=== PATIENT | female | born 1975 | race Caucasian/White ===

== ENCOUNTER → 2018-12-05 | Outpatient (CLI) | payer BC ==
[~2018-12-05] VITALS: Ht 165.1 cm; Wt 68.0 kg
[~2018-12-05] MED LIST: SINCALIDE 1.36 MCG in IV NORMAL SALINE 50ML 30 ML IV ONE
--- NOTE | 2018-12-05 12:17 | RAD ---
Hepatobiliary scan with gallbladder ejection fraction calculation 12/05/2018 Clinical History: Right upper quadrant abdominal pain with nausea and vomiting for 6 weeks. Technique: After the intravenous administration of 5.5 mCi of technetium 99m Choletec, imaging of the right upper quadrant of the abdomen was performed using the gamma camera for 60 minutes. 2 mcg of CCK was infused intravenously and continued imaging of the right upper quadrant of the abdomen was performed for 30 minutes. A gallbladder ejection fraction was calculated. Findings: Normal perfusion, uptake and excretion of the radionuclide by the liver is seen. There is no evidence of cystic or common bile duct obstruction. The gallbladder is within normal limits in position and configuration. During the infusion of CCK emptying of the gallbladder is seen on the static images. The gallbladder ejection fraction is 97% which is within normal limits. Impression: Negative study. Electronically signed by: Karl Wilson MD (12/05/2018 12:13 PM) [facility]
== END | disposition home or self-care (01) ==
LOC: NM 08:41
PROVIDERS: ATTEND Internal Medicine Gastroenterology
DX: R10.11 Right upper quadrant pain (principal); R11.2 Nausea with vomiting, unspecified
CPT/HCPCS: 78227; A9537; J2805

== ENCOUNTER → 2018-12-15 | Outpatient (CLI) | payer BC ==
[~2018-12-15] MED LIST changes: +DICY20TA3 PO; +DULO60CA6 PO; +LOSA1TAB19 PO; +OXYC1TAB15 PO; -SINCALIDE 1.36 MCG in IV NORMAL SALINE 50ML 30 ML IV ONE
[2018-12-15 10:40] LABS: BASO # 0.1 x10^3/uL (0.0-0.2); BASO % 1 % (0-3); EOS # 0.1 x10^3/uL (0.0-0.7); EOS % 2 % (0-3); HEMATOCRIT 38.2 % (36.0-47.0); HEMOGLOBIN 13.3 g/dL (12.0-15.5); LYMPH # 1.7 x10^3/uL (1.0-4.8); LYMPH % 30 % (24-48); MEAN CORPUSCULAR HEMOGLOBIN 31 pg (25-35); MEAN CORPUSCULAR HGB CONC 35 g/dL (31-37); MEAN CORPUSCULAR VOLUME 89 fL (79-100); MONO # 0.5 x10^3/uL (0.0-1.1); MONO % 8 % (0-9); NEUT # 3.3 x10^3/uL (1.8-7.7); NEUT % 59 % (31-73); PLATELET COUNT 336 x10^3/uL (140-400); RED CELL DISTRIBUTION WIDTH 12.9 % (11.5-14.5); WHITE BLOOD COUNT 5.5 x10^3/uL (4.0-11.0)
[2018-12-15 10:58] LABS: ALBUMIN 4.1 g/dL (3.4-5.0); CALCIUM 9.6 mg/dL (8.5-10.1); CREATININE 1.1 mg/dL (0.6-1.0); POTASSIUM 4.2 mmol/L (3.5-5.1); TOTAL BILIRUBIN 0.2 mg/dL (0.2-1.0)
--- NOTE | 2018-12-15 13:41 | NUR ---
FAXED PRE - OP LAB REPORTS TO 'S OFFICE FOR REVIEW AT 1254 12/15/2018 AND RECEIVED TRANSMITTAL CONFIRMATION.
== END | disposition home or self-care (01) ==
LOC: SURGPAT 10:05
PROVIDERS: ATTEND Surgery
DX: Z01.818 Encounter for other preprocedural examination (principal); K82.8 Other specified diseases of gallbladder
CPT/HCPCS: 36415; 80048; 82040; 82247; 85025

== ENCOUNTER 2018-12-16 13:02 | Day surgery (SDC) | payer BC ==
[~2018-12-16] VITALS: Ht 165.1 cm; Wt 67.5 kg
[~2018-12-16 13:02] MED LIST changes: +BUPIVAC MPF-EPI 0.5%-1:200000 30 ML VIAL. ONE; +BUPIVACAINE MPF 0.5% 30 ML VIAL. ONE; +GLUCAGON,HUMAN RECOMBINANT 1 MG/ML VIAL. ONE; +HYDROmorphone 2 MG/ML VIAL IV PRN; +IOHEXOL 300 MG/ML 50 ML VIAL. ONE; +IV RINGERS,LACTATED 1000ML 1,000 ML IV SCH; +MORPHINE SULFATE 2 MG/ML VIAL. IV PRN; +ONDANSETRON PF 4 MG/2 ML VIAL. IV PRN; -OXYC1TAB15 PO; +PROCHLORPERAZINE 10 MG/2 ML VIAL. IV PRN; +SURGICEL HEMOSTAT 4X8 EACH. ONE; +fentaNYL PF VIAL 100 MCG/2 ML VIAL IV PRN
[2018-12-16] MEDS ORDERED: ROCURONIUM 50 MG/5 ML VIAL. ONE (13:45)
[2018-12-16] MEDS ORDERED: ONDANSETRON PF 4 MG/2 ML VIAL. ONE (13:45)
[2018-12-16] MEDS ORDERED: FAMOTIDINE 20 MG/2 ML VIAL ONE (13:45)
[2018-12-16] MEDS ORDERED: PROPOFOL 20 ML IV ONE (13:45)
[2018-12-16] MEDS ORDERED: DEXAMETHASONE SOD PHOS 4 MG/ML VIAL ONE (13:45)
[2018-12-16] MEDS ORDERED: MIDAZOLAM HCL/PF 2 MG/2 ML VIAL. ONE (13:45)
[2018-12-16] MEDS ORDERED: LIDOCAINE 2% PF 5 ML VIAL. ONE (13:45)
[2018-12-16] MEDS ORDERED: fentaNYL PF VIAL 100 MCG/2 ML VIAL ONE ×2 (13:45→15:45)
[2018-12-16] MEDS ORDERED: GLYCOPYRROLATE 1 MG/5 ML VIAL. ONE (14:26)
[2018-12-16] MEDS ORDERED: NEOSTIGMINE 10 MG/10 ML VIAL. ONE (14:27)
[2018-12-16] MEDS ORDERED: DESFLURANE 31 TO 60 MINUTES IH ONE (14:57)
--- NOTE | 2018-12-16 15:12 | DISCH ---
DISCHARGE INSTRUCTIONS Condition on Discharge Condition on Discharge: Stable Activity After Discharge Activity Instructions for Disc: Activity as tolerated, Avoid exertion Driving Instructions after Dis: Do not drive (3-4 days) Diet after Discharge Diet after Discharge: Regular Wound Incision Care Wound/Incision Care: Ice to area for comfort Other wound/incision instructi: donna shower Wednesday Follow-Up Follow up with: Patel next week AVANI CAMPOS MD Dec 16, 2018 15:12
--- NOTE | 2018-12-16 15:14 | PDOC ---
BRIEF OPERATIVE NOTE Date: Dec 16, 2018 Pre-Op Diagnosis biliary dyskinesia Post-Op Diagnosis same, omental adhesions Procedure Performed l/s PELON foreman Surgeon Patel Lan Manager Mita GARCIA Anesthesia Type: General Blood Loss 10cc IV Fluid 750cc Specimens Obtained GB Findings omental adhesions in the right mid abdomen, supple GB Complications none AVANI CAMPOS MD Dec 16, 2018 15:14
[2018-12-16] MEDS ORDERED: OXYC1TAB15 PO (15:50)
--- NOTE | 2018-12-16 15:51 | OP ---
DATE OF SURGERY: 12/16/2018 PREOPERATIVE DIAGNOSIS: Gallbladder polyps and biliary dyskinesia. POSTOPERATIVE DIAGNOSIS: Gallbladder polyps and biliary dyskinesia with omental adhesions. PROCEDURE: Laparoscopic cholecystectomy and lysis of adhesions. SURGEON: Avani Campos MD BALL THREAD MACHINE TENDER: JOSE Oneill. ANESTHESIA: General endotracheal. BLOOD LOSS: 10 mL. INTRAVENOUS: 750. OPERATIVE FINDINGS: The liver was smooth and sharp. The gallbladder was supple. There were omental adhesions in the right upper abdomen. Visual inspection of the remainder of the abdomen failed to reveal obvious abnormalities. DESCRIPTION OF PROCEDURE: The patient was brought to the operating suite, given a general endotracheal anesthetic and the abdomen was prepped and draped in usual sterile fashion. A supraumbilical incision was made after infiltrating with local anesthetic and a 5 mm Visiport used to safely gain access into the abdominal cavity, taking care to avoid injury to abdominal contents. Pneumoperitoneum established. Camera inserted. Inspection carried out with results as noted above. With the table in reverse Trendelenburg rolled to the left, the epigastric and midclavicular ports were placed under direct vision. The lateral port location was used for an "alligator" grasper. The laparoscopic LigaSure was used to carefully take down omental adhesions from the mid abdomen to facilitate the gallbladder surgery. Care was taken to avoid injury to the adjacent bowel. The cystic duct and cystic artery were identified. The artery was clipped and divided. The cystic duct was then clipped on the gallbladder side. Attempts at cholangiogram were unsuccessful due to the small caliber of the cystic duct. As such, the duct was clipped and divided, taking care to avoid injury or compromise the common duct. The gallbladder freed from the bed with cautery dissection, placed in an EndoCatch bag. Good hemostasis present and no evidence of bile leak seen. Table returned to level. Gallbladder delivered through the epigastric incision. Epigastric incision was closed with 0 Vicryl suture. At 6 cm intra-abdominal water pressure, no bleeding from the epigastric closure or from the midclavicular port site after its removal or from the location of the alligator grasper. Abdomen decompressed. Cam removed, no bleeding seen. Skin incision was closed with subcuticular 4-0 Monocryl. Steri-Strips and sterile dressings applied. The patient awakened from her anesthetic and taken to the recovery room in satisfactory condition. AVANI CAMPOS MD DR: Mao JOB#: [id number] / [id number]
[2018-12-16] MEDS ORDERED: oxyCODONE/APAP 5/325 1 TAB TABLET PO ONE ×2 (16:00)
[2018-12-16 17:15] VITALS: BP 122/66
--- NOTE | 2018-12-20 16:06 | PATHOLOGY ---
[facility] Accession Number: [id number] . 01 Material submitted: . gallbladder - GALLBLADDER WITH CONTENTS . 01 Clinical history: . Biliary dyskinesia . 02 Diagnosis: Gallbladder, laparoscopic cholecystectomy: - Chronic cholecystitis. (JPM:[facility]; 12/20/2018) QMS/12/20/2018 . 02 Comment: There are no calculi identified within the gallbladder lumen or the specimen container. There is no evidence of malignancy. (JPM:sebastian; 12/20/2018) . 02 Electronically signed: . Gabriel Khan MD, Pathologist NPI- [id number] . 01 Gross description: . The specimen is received in formalin, labeled "Fitz, Makenna, gallbladder with contents", is a previously opened, collapsed gallbladder measuring 7.0 cm in length and 3.5 cm in maximum diameter with a glistening and predominantly green serosa. The cystic duct is patent. The mucosa is velvety green with no calculi and cholesterolosis. The wall is 0.1 cm in average thickness. Representatively submitted in A1. ([facility]; 12/19/2018) SHS/SHS . 02 Pathologist provided ICD-10: K81.1 . 02 CPT . 715155 Specimen Comment: A courtesy copy of this report has been sent to Specimen Comment: [phone], . Specimen Comment: Report sent to / DR CENTENO Performed at: 01 [facility] [address], [place] [id number] MD Nir Castillo MD Phone: [phone] Performed at: 02 [facility] [address], [place] [id number] MD Gabriel Khan MD Phone: [phone]
--- NOTE | 2018-12-21 16:06 | PATHOLOGY ---
[facility] Accession Number: [id number] . 01 Material submitted: . leg - RIGHT LOWER LEG. Modifiers: right, lower . 01 Clinical history: . History of right transmetatarsal amputation with necrosis . 02 Diagnosis: Right leg above knee amputation: - Status post right foot transmetatarsal amputation. - Gangrenous necrosis, ulceration, and focally extensive acute cellulitis of amputation stump. - Extensive calcification and stenosis of popliteal, anterior tibial, and posterior tibial arteries. - Skin and subcutaneous tissue of proximal amputation margin viable. - Psoriasiform stasis dermatitis. (JPM:sebastian; 12/20/2018) QMS/12/21/2018 . 02 Electronically signed: . Gabriel Khan MD, Pathologist NPI- [id number] . 01 Gross description: . The specimen is received fresh in a red biohazard bag, labeled "Jovani Shelley Jr., right leg". Received is an [id number] amputation measuring 17.7 cm, from stump of foot to heel, 46.6 cm from heel to proximal skin margin and 53.9 cm from heel to transected femoral margin. The skin and soft tissue margins appear viable. On the anterior and medial aspect of the leg, at the mid-calf, there is a poorly circumscribed, flat, flaky and white-bishop to diana-brown lesion measuring 14.8 x 13.8 cm, which is 22.7 cm from the closest skin margin. All five toes are absent. The stump of the foot displays a poorly circumscribed, yellow-bishop to brown-black, necrotic-appearing lesion, with sutures present, measuring 8.7 x 3.2 cm. The remainder of the foot is diana-bishop to diana-brown and flaky in appearance. The popliteal artery is predominately calcified at the arterial margin. The anterior tibial vasculature displays pinpoint to slightly patent lumens with a moderate amount of calcification. The posterior tibial vasculature displays slightly patent to pinpoint lumens with no gross evidence of calcification. The specimen is submitted [employer] as well as: . A1 skin and soft tissue margin A2 popliteal artery, following light decalcification A3 [employer] sections of skin lesion on anterior and medial aspect of mid-calf A4 [employer] sections of lesion overlying stump of foot A5 anterior tibial vasculature, following light decalcification A6 posterior tibial vasculature. ([facility]; 12/19/2018) QAC/QAC . 02 Pathologist provided ICD-10: I96, L97.919, L03.115, I70.201 . 02 CPT . 313306, 949910 Specimen Comment: A courtesy copy of this report has been sent to Specimen Comment: [phone], , . Specimen Comment: Report sent to ,DR CAMPOS / DR CENTENO Performed at: 01 [facility] [address] [facility] [address], [place] [id number] MD Nir Castillo MD Phone: [phone] Performed at: 02 [facility] [address] [place], [place] [id number] MD Gabriel Khan MD Phone: [phone]
== END 2018-12-16 17:11 | disposition home or self-care (01) ==
LOC: SURG 13:02
PROVIDERS: ATTEND Surgery
DX: K81.1 Chronic cholecystitis (principal); K82.8 Other specified diseases of gallbladder; K66.0 Peritoneal adhesions (postprocedural) (postinfection); F41.9 Anxiety disorder, unspecified; F32.9 Major depressive disorder, single episode, unspecified; Z98.890 Other specified postprocedural states; Z98.51 Tubal ligation status; Z72.89 Other problems related to lifestyle
CPT/HCPCS: 47562; 81025; 88304; A7015; J0690; J0780; J1100; J2001; J2250; J2405; J2704; J2710; J3010; J3490; J7030; Q9967; J1610

== ENCOUNTER → 2018-12-27 | Outpatient (CLI) | payer BC ==
[2018-12-16 17:15] VITALS: BP 122/66
[~2018-12-27] MED LIST changes: -BUPIVAC MPF-EPI 0.5%-1:200000 30 ML VIAL. ONE; -BUPIVACAINE MPF 0.5% 30 ML VIAL. ONE; -GLUCAGON,HUMAN RECOMBINANT 1 MG/ML VIAL. ONE; -HYDROmorphone 2 MG/ML VIAL IV PRN; -IOHEXOL 300 MG/ML 50 ML VIAL. ONE; -IV RINGERS,LACTATED 1000ML 1,000 ML IV SCH; -MORPHINE SULFATE 2 MG/ML VIAL. IV PRN; -ONDANSETRON PF 4 MG/2 ML VIAL. IV PRN; +OXYC1TAB15 PO; -PROCHLORPERAZINE 10 MG/2 ML VIAL. IV PRN; -SURGICEL HEMOSTAT 4X8 EACH. ONE; -fentaNYL PF VIAL 100 MCG/2 ML VIAL IV PRN
[2018-12-27 10:16] LABS: BASO # 0.1 x10^3/uL (0.0-0.2); BASO % 1 % (0-3); EOS # 0.1 x10^3/uL (0.0-0.7); EOS % 1 % (0-3); HEMATOCRIT 39.6 % (36.0-47.0); HEMOGLOBIN 13.9 g/dL (12.0-15.5); LYMPH # 1.5 x10^3/uL (1.0-4.8); LYMPH % 18 % (24-48); MEAN CORPUSCULAR HEMOGLOBIN 31 pg (25-35); MEAN CORPUSCULAR HGB CONC 35 g/dL (31-37); MEAN CORPUSCULAR VOLUME 88 fL (79-100); MONO # 0.5 x10^3/uL (0.0-1.1); MONO % 6 % (0-9); NEUT # 5.9 x10^3/uL (1.8-7.7); NEUT % 74 % (31-73); PLATELET COUNT 368 x10^3/uL (140-400)
[2018-12-27 10:27] LABS: CALCIUM 9.3 mg/dL (8.5-10.1); GFR 60.2; POTASSIUM 3.2 mmol/L (3.5-5.1); TOTAL BILIRUBIN 0.3 mg/dL (0.2-1.0)
== END | disposition home or self-care (01) ==
LOC: LAB 09:56
PROVIDERS: ATTEND Surgery
DX: K82.8 Other specified diseases of gallbladder (principal)
CPT/HCPCS: 36415; 80048; 82247; 83690; 85025